=== PATIENT | female | born 1960 | race African-American/Black ===

== ENCOUNTER 2019-03-06 11:30 | Inpatient (IN) ==
[2019-03-06] MEDS ORDERED: niCARdipine 25 MG/10 ML VIAL IV ONE ×2 (12:16→16:20)
[2019-03-06 12:19] LABS: Basophils # 0.1 10*3/uL (0.0-0.2); Basophils % 0.6 % (0.0-0.8); Eosinophils % 0.5 % (0.00-10.9); Hematocrit 44.6 VOL% (35.7-47.0); Immature Granulocytes % 0.3 %; Immature Granulocytes Absolute 0.02 #; Lymphocytes # 1.2 10*3/uL (1.4-4.0); Lymphocytes % 15.1 % (21.3-54.2); Mean Corpuscular HGB Conc 31.4 GM/DL (32-36); Mean Corpuscular Volume 94.1 FL (87-102); Mean Platelet Volume 10.6 FL (9.6-12.0); Monocytes % 3.9 % (1.7-12.7); Neutrophils % 79.6 % (38.7-73.9); Platelet Count 292 T/CUMM (130-400); Red Blood Count 4.74 MC/CUMM (3.8-5.5); Red Cell Distribution Width 14.4 % (9.3-17.3); White Blood Count 7.9 T/CUMM (4-12)
[2019-03-06] MEDS: niCARdipine INJ 25 MG in SODIUM CHLORIDE 0.9% 240 ML IV PRN ×3 (12:26→20:08)
[2019-03-06 12:29] LABS: INR 0.9; PT Patient Result 10.2 SECS (9.6-12.2); Partial Thromboplastin Time 26.8 SECS (20.8-36.0)
[2019-03-06 12:39] LABS: Alanine Aminotransferase 15 U/L (13-56); Albumin 4.2 G/DL (3.4-5.0); Alkaline Phosphatase 69 U/L (45-117); Aspartate Amino Transferase 13 U/L (0-37); Bilirubin,Total < 0.39 MG/DL (0.2-1.0); Blood Urea Nitrogen 17 MG/DL (7-18); Calcium 9.7 MG/DL (8.5-10.1); Estimated Glom Filtration Rate 81 ML/MIN; Glucose 150 MG/DL (74-106); Osmolality,Calculated 285.3 MOS/KG (273-304)
[2019-03-06] MEDS ORDERED: MORPHINE 4 MG/1 ML VIAL IV PRN (12:57)
[2019-03-06] MEDS ORDERED: DOCUSATE SODIUM 100 MG CAPSULE PO PRN (12:57)
[2019-03-06] MEDS ORDERED: ONDANSETRON 4 MG/2 ML VIAL IV PRN (12:57)
[2019-03-06] MEDS: ENOXAPARIN 40 MG/0.4 ML SYRINGE SUBCUT SCH (14:21)
[2019-03-06 18:31] LABS: Apearance,Urine CLEAR (Clear); Bilirubin,Urine Negative (Negative); Blood, Urine Small mg/dL (Negative); Glucose,Urine (UA) 50 mg/dL (Negative); Hyaline Casts,Urine 1 /LPF (0-3); Ketones,Urine 20 mg/dL (Negative); Mucus,Urine Occasional /LPF (Occasional); Nitrite,Urine Negative (Negative); Protein,Urine Negative; RBC,Urine 3 /HPF (0-4); Squamous Epithelial Cell,Urine Occasional /HPF (0-10); Urine Color Straw (Yellow); Urine Specific Gravity 1.013 (1.001-1.035); Urine Urobilinogen < 2.0 EU/DL (0.2-1.0); WBC,Urine 1 /HPF (0-6)
[2019-03-06 18:49] LABS: Barbiturates Screen,Urine Negative (Negative); Benzodiazepines Screen,Urine Negative (Negative); Cannabinoid Screen,Urine Positive (Negative); Opiate Screen,Urine Negative (Negative); Phencyclidine Screen,Urine Negative (Negative)
[2019-03-06] MEDS: ACETAMINOPHEN 325 MG TABLET PO PRN (20:12)
[2019-03-06] MEDS: LABETALOL 100 MG TABLET PO SCH (20:16)
[2019-03-06] MEDS ORDERED: METOPROLOL TARTRATE 50 MG TABLET PO SCH (21:00)
[2019-03-07 04:46] LABS: Basophils # 0.1 10*3/uL (0.0-0.2); Basophils % 0.6 % (0.0-0.8); Eosinophils # 0.1 10*3/uL (0.0-0.87); Hematocrit 41.1 VOL% (35.7-47.0); Immature Granulocytes % 0.2 %; Immature Granulocytes Absolute 0.02 #; Lymphocytes # 1.9 10*3/uL (1.4-4.0); Lymphocytes % 22.9 % (21.3-54.2); Mean Corpuscular HGB Conc 31.6 GM/DL (32-36); Mean Corpuscular Volume 92.8 FL (87-102); Mean Platelet Volume 10.2 FL (9.6-12.0); Monocytes % 6.2 % (1.7-12.7); Neutrophils % 69.1 % (38.7-73.9); Platelet Count 265 T/CUMM (130-400); Red Blood Count 4.43 MC/CUMM (3.8-5.5); Red Cell Distribution Width 14.2 % (9.3-17.3); White Blood Count 8.2 T/CUMM (4-12)
[2019-03-07 05:01] LABS: Osmolality,Calculated 279.4 MOS/KG (273-304); Risk Ratio 2.72; VLDL CHOLESTEROL 19.8 MG/DL
[2019-03-07] MEDS: PANTOPRAZOLE 40 MG TABLET PO SCH (08:16)
[2019-03-07] MEDS: ATORVASTATIN 40 MG TABLET PO SCH (08:17)
[2019-03-07] MEDS: LABETALOL 100 MG TABLET PO SCH ×2 (08:17→20:55)
[2019-03-07] MEDS: ASPIRIN 325 MG TABLET PO SCH (08:17)
[2019-03-07] MEDS ORDERED: LOSARTAN/HCTZ 50-12.5 MG TABLET PO SCH (09:00)
[2019-03-07] MEDS: hydrALAZINE 20 MG/1 ML VIAL IV PRN (11:35)
[2019-03-07] MEDS: ENOXAPARIN 40 MG/0.4 ML SYRINGE SUBCUT SCH (12:24)
[2019-03-07] MEDS: ACETAMINOPHEN 325 MG TABLET PO PRN (21:06)
[2019-03-08 05:42] LABS: Calcium 9.1 MG/DL (8.5-10.1); Osmolality,Calculated 285.1 MOS/KG (273-304)
[2019-03-08] MEDS: LABETALOL 100 MG TABLET PO SCH ×2 (09:48→21:14)
[2019-03-08] MEDS: ASPIRIN 325 MG TABLET PO SCH (09:48)
[2019-03-08] MEDS: ATORVASTATIN 40 MG TABLET PO SCH (09:48)
[2019-03-08] MEDS: hydrALAZINE 20 MG/1 ML VIAL IV PRN (09:48)
[2019-03-08] MEDS: PANTOPRAZOLE 40 MG TABLET PO SCH (09:48)
[2019-03-08] MEDS: LOSARTAN 50 MG TABLET PO SCH (09:49)
[2019-03-08] MEDS: ENOXAPARIN 40 MG/0.4 ML SYRINGE SUBCUT SCH (15:00)
[2019-03-09 05:12] LABS: Calcium 9.2 MG/DL (8.5-10.1); Osmolality,Calculated 290.1 MOS/KG (273-304)
[2019-03-09] MEDS: LOSARTAN 50 MG TABLET PO SCH (09:07)
[2019-03-09] MEDS: ASPIRIN 325 MG TABLET PO SCH (09:07)
[2019-03-09] MEDS: PANTOPRAZOLE 40 MG TABLET PO SCH (09:08)
[2019-03-09] MEDS: ATORVASTATIN 40 MG TABLET PO SCH (09:08)
[2019-03-09] MEDS: LABETALOL 100 MG TABLET PO SCH (09:14)
[2019-03-09] MEDS ORDERED: POTASSIUM CHLORIDE 20 MEQ TABLET PO ONE (09:48)
[2019-03-09] MEDS: SODIUM CHLORIDE 0.9% 1,000 ML IV SCH ×2 (12:29→21:25)
[2019-03-09] MEDS: carvediloL 25 MG TABLET PO SCH ×2 (12:29→21:25)
[2019-03-09] MEDS: ENOXAPARIN 40 MG/0.4 ML SYRINGE SUBCUT SCH (15:01)
[2019-03-09] MEDS: hydrALAZINE 25 MG TABLET PO SCH ×2 (15:01→21:25)
[2019-03-09] MEDS: ALBUTEROL 2.5 MG/3 ML NEB RESP TX PRN (15:34)
[2019-03-10] MEDS ORDERED: CETIRIZINE 10 MG TABLET PO ONE (03:44)
[2019-03-10 05:22] LABS: Basophils % 0.4 % (0.0-0.8); Eosinophils # 0.1 10*3/uL (0.0-0.87); Eosinophils % 1.2 % (0.00-10.9); Hematocrit 36.6 VOL% (35.7-47.0); Hemoglobin 11.6 GM/DL (12.0-16.0); Immature Granulocytes % 0.3 %; Immature Granulocytes Absolute 0.02 #; Lymphocytes # 1.1 10*3/uL (1.4-4.0); Lymphocytes % 14.4 % (21.3-54.2); Mean Corpuscular HGB Conc 31.7 GM/DL (32-36); Mean Corpuscular Volume 93.8 FL (87-102); Mean Platelet Volume 11.2 FL (9.6-12.0); Monocytes % 6.8 % (1.7-12.7); Neutrophils % 76.9 % (38.7-73.9); Platelet Count 253 T/CUMM (130-400); Red Cell Distribution Width 14.7 % (9.3-17.3); White Blood Count 7.5 T/CUMM (4-12)
[2019-03-10 05:57] LABS: Calcium 8.7 MG/DL (8.5-10.1); Osmolality,Calculated 296.6 MOS/KG (273-304)
[2019-03-10] MEDS: hydrALAZINE 25 MG TABLET PO SCH ×3 (08:51→21:35)
[2019-03-10] MEDS: carvediloL 25 MG TABLET PO SCH ×2 (08:51→21:35)
[2019-03-10] MEDS: ATORVASTATIN 40 MG TABLET PO SCH (08:51)
[2019-03-10] MEDS: PANTOPRAZOLE 40 MG TABLET PO SCH (08:51)
[2019-03-10] MEDS: SODIUM CHLORIDE 0.9% 1,000 ML IV SCH ×2 (09:41→17:39)
[2019-03-10] MEDS: ASPIRIN EC 81 MG TABLET PO SCH (09:41)
[2019-03-10] MEDS: ENOXAPARIN 40 MG/0.4 ML SYRINGE SUBCUT SCH (14:38)
[2019-03-10] MEDS: ALBUTEROL 2.5 MG/3 ML NEB RESP TX PRN (17:54)
[2019-03-10] MEDS ORDERED: ZALEPLON 5 MG CAPSULE PO PRN (23:27)
[2019-03-11] MEDS: ALBUTEROL 2.5 MG/3 ML NEB RESP TX PRN ×3 (01:14→23:35)
[2019-03-11] MEDS: SODIUM CHLORIDE 0.9% 1,000 ML IV SCH ×2 (01:21→15:17)
[2019-03-11] MEDS: hydrALAZINE 20 MG/1 ML VIAL IV PRN ×2 (01:45→08:02)
[2019-03-11 06:14] LABS: Basophils % 0.5 % (0.0-0.8); Eosinophils # 0.3 10*3/uL (0.0-0.87); Eosinophils % 3.5 % (0.00-10.9); Hematocrit 36.4 VOL% (35.7-47.0); Hemoglobin 11.2 GM/DL (12.0-16.0); Immature Granulocytes % 0.3 %; Immature Granulocytes Absolute 0.02 #; Lymphocytes # 1.2 10*3/uL (1.4-4.0); Lymphocytes % 15.4 % (21.3-54.2); Mean Corpuscular HGB Conc 30.8 GM/DL (32-36); Mean Corpuscular Volume 96.6 FL (87-102); Mean Platelet Volume 11.3 FL (9.6-12.0); Monocytes % 6.5 % (1.7-12.7); Neutrophils % 73.8 % (38.7-73.9); Platelet Count 252 T/CUMM (130-400); Red Blood Count 3.77 MC/CUMM (3.8-5.5); Red Cell Distribution Width 14.7 % (9.3-17.3); White Blood Count 7.7 T/CUMM (4-12)
[2019-03-11 06:44] LABS: Calcium 8.6 MG/DL (8.5-10.1); Osmolality,Calculated 290.7 MOS/KG (273-304)
[2019-03-11 09:30] LABS: Basophils # 0.1 10*3/uL (0.0-0.2); Basophils % 0.5 % (0.0-0.8); Eosinophils # 0.3 10*3/uL (0.0-0.87); Eosinophils % 3.1 % (0.00-10.9); Hematocrit 38.6 VOL% (35.7-47.0); Hemoglobin 11.9 GM/DL (12.0-16.0); Immature Granulocytes % 0.4 %; Immature Granulocytes Absolute 0.04 #; Lymphocytes # 1.2 10*3/uL (1.4-4.0); Lymphocytes % 12.4 % (21.3-54.2); Mean Corpuscular HGB Conc 30.8 GM/DL (32-36); Mean Corpuscular Volume 95.8 FL (87-102); Mean Platelet Volume 10.3 FL (9.6-12.0); Monocytes % 5.5 % (1.7-12.7); Neutrophils % 78.1 % (38.7-73.9); Platelet Count 248 T/CUMM (130-400); Red Blood Count 4.03 MC/CUMM (3.8-5.5); Red Cell Distribution Width 14.6 % (9.3-17.3); White Blood Count 9.9 T/CUMM (4-12)
[2019-03-11] MEDS ORDERED: SODIUM CHLORIDE 0.9% 1,000 ML IV SCH (09:30)
[2019-03-11 09:44] LABS: INR 0.9; PT Patient Result 10.1 SECS (9.6-12.2); Partial Thromboplastin Time 28.3 SECS (20.8-36.0)
[2019-03-11 09:48] LABS: Albumin 3.2 G/DL (3.4-5.0); Bilirubin,Total 0.4 MG/DL (0.2-1.0); Calcium 8.8 MG/DL (8.5-10.1); Osmolality,Calculated 287.8 MOS/KG (273-304); Total Protein 6.5 G/DL (6.4-8.3)
[2019-03-11 10:04] LABS: Troponin I < 0.015 NG/ML (0.00-0.045)
[2019-03-11] MEDS: hydrALAZINE 25 MG TABLET PO SCH (10:13)
[2019-03-11] MEDS: ASPIRIN EC 81 MG TABLET PO SCH (10:13)
[2019-03-11] MEDS: ATORVASTATIN 40 MG TABLET PO SCH (10:14)
[2019-03-11] MEDS: carvediloL 25 MG TABLET PO SCH ×2 (10:14→21:21)
[2019-03-11] MEDS: PANTOPRAZOLE 40 MG TABLET PO SCH (10:14)
[2019-03-11] MEDS: ENOXAPARIN 40 MG/0.4 ML SYRINGE SUBCUT SCH (15:10)
[2019-03-11] MEDS: methylPREDNISolone SOD SUC 40 MG/1 ML VIAL IV SCH ×2 (15:11→21:21)
[2019-03-11] MEDS: AZITHROMYCIN INJ 250 MG in SODIUM CHLORIDE 0.9% 250 ML IV SCH (16:17)
[2019-03-12] MEDS: hydrALAZINE 20 MG/1 ML VIAL IV PRN ×2 (00:42→16:25)
[2019-03-12] MEDS: SODIUM CHLORIDE 0.9% 1,000 ML IV SCH ×2 (01:17→09:34)
[2019-03-12] MEDS: ALBUTEROL 2.5 MG/3 ML NEB RESP TX PRN ×3 (03:50→20:34)
[2019-03-12] MEDS ORDERED: hydrALAZINE 20 MG/1 ML VIAL IV ONE (05:17)
[2019-03-12 05:25] LABS: Basophils % 0.2 % (0.0-0.8); Hematocrit 38.5 VOL% (35.7-47.0); Hemoglobin 11.8 GM/DL (12.0-16.0); Immature Granulocytes % 0.3 %; Immature Granulocytes Absolute 0.02 #; Lymphocytes # 0.5 10*3/uL (1.4-4.0); Lymphocytes % 6.9 % (21.3-54.2); Mean Corpuscular HGB Conc 30.6 GM/DL (32-36); Monocytes % 0.3 % (1.7-12.7); Neutrophils % 92.3 % (38.7-73.9); Platelet Count 227 T/CUMM (130-400); Red Blood Count 4.01 MC/CUMM (3.8-5.5); Red Cell Distribution Width 14.5 % (9.3-17.3); White Blood Count 6.5 T/CUMM (4-12)
[2019-03-12 05:50] LABS: Calcium 8.6 MG/DL (8.5-10.1); Osmolality,Calculated 295.6 MOS/KG (273-304)
[2019-03-12 06:02] LABS: Eosinophils 1 % (0-10); Lymphocytes 7 % (20-55); Segmented Neutrophils 91 % (50-85); Total Cells Counted 100
[2019-03-12 06:03] LABS: Anisocytosis 1+; Platelet Estimate Adequate
[2019-03-12] MEDS: methylPREDNISolone SOD SUC 40 MG/1 ML VIAL IV SCH ×3 (06:08→22:19)
[2019-03-12] MEDS: carvediloL 25 MG TABLET PO SCH ×2 (09:35→20:25)
[2019-03-12] MEDS: PANTOPRAZOLE 40 MG TABLET PO SCH (09:36)
[2019-03-12] MEDS: ATORVASTATIN 40 MG TABLET PO SCH (09:36)
[2019-03-12] MEDS: cloNIDine 0.1 MG TABLET PO SCH ×2 (09:36→20:24)
[2019-03-12] MEDS: ASPIRIN EC 81 MG TABLET PO SCH (09:41)
[2019-03-12] MEDS: ENOXAPARIN 40 MG/0.4 ML SYRINGE SUBCUT SCH (13:21)
[2019-03-12] MEDS: AZITHROMYCIN INJ 250 MG in SODIUM CHLORIDE 0.9% 250 ML IV SCH (15:13)
[2019-03-12] MEDS: APIXABAN 2.5 MG TABLET PO SCH ×2 (15:59→20:25)
[2019-03-13] MEDS: ALBUTEROL 2.5 MG/3 ML NEB RESP TX PRN ×3 (01:21→12:25)
[2019-03-13] MEDS: methylPREDNISolone SOD SUC 40 MG/1 ML VIAL IV SCH ×2 (06:27→16:03)
[2019-03-13] MEDS: SODIUM CHLORIDE 0.9% 1,000 ML IV SCH ×3 (06:42→16:03)
[2019-03-13] MEDS: carvediloL 25 MG TABLET PO SCH (08:16)
[2019-03-13] MEDS: APIXABAN 2.5 MG TABLET PO SCH (08:16)
[2019-03-13] MEDS: ATORVASTATIN 40 MG TABLET PO SCH (08:16)
[2019-03-13] MEDS: PANTOPRAZOLE 40 MG TABLET PO SCH (08:16)
[2019-03-13] MEDS: ASPIRIN EC 81 MG TABLET PO SCH (08:16)
[2019-03-13] MEDS: cloNIDine 0.1 MG TABLET PO SCH (08:16)
[2019-03-13] MEDS ORDERED: TUBERCULIN SKIN TEST 0.1 ML SYRINGE INTRADERM ONE (10:47)
[2019-03-13] MEDS: hydrALAZINE 20 MG/1 ML VIAL IV PRN (12:30)
[2019-03-13 15:38] VITALS: BP 172/86
[2019-03-13] MEDS: AZITHROMYCIN INJ 250 MG in SODIUM CHLORIDE 0.9% 250 ML IV SCH (16:04)
== END 2019-03-13 16:16 | DRG 304 ==
LOC: N.ED 11:30 → SUATTDRO 12:57 → N.EDINP 12:57 → N.CC 16:52 → N.4E 03-08 12:16
PROVIDERS: ADMIT Internal Medicine; ATTEND Internal Medicine

== ENCOUNTER 2021-06-26 05:16 | Inpatient (IN) ==
[2021-06-26] MEDS ORDERED: LORazepam 2 MG/1 ML VIAL IV STA (05:24)
[2021-06-26] MEDS ORDERED: hydrALAZINE 20 MG/1 ML VIAL IV STA (05:24)
[2021-06-26] MEDS ORDERED: ONDANSETRON 4 MG/2 ML VIAL IV STA (05:24)
[2021-06-26] MEDS ORDERED: ASPIRIN 325 MG TABLET PO STA (05:24)
[2021-06-26] MEDS ORDERED: methylPREDNISolone SOD SUC 125 MG/2 ML VIAL IV STA (05:24)
[2021-06-26] MEDS ORDERED: NITROGLYCERIN 2% OINT 1 INCH/GM PACK TOP STA (05:26)
[2021-06-26] MEDS ORDERED: ALBUTEROL NEB SOLN 5 MG/ML 20 ML/BOTTLE CONT NEB SCH (05:30)
[2021-06-26] MEDS ORDERED: ALBUTEROL 2.5 MG/3 ML NEB RESP TX ONE (05:34)
[2021-06-26 05:43] LABS: Basophils % 0.5 % (0.0-0.8); Eosinophils # 0.1 10*3/uL (0.0-0.87); Eosinophils % 1.5 % (0.00-10.9); Hematocrit 41.1 VOL% (35.7-47.0); Hemoglobin 13.1 GM/DL (12.0-16.0); Immature Granulocytes % 0.4 %; Immature Granulocytes Absolute 0.03 #; Lymphocytes # 1.1 10*3/uL (1.4-4.0); Lymphocytes % 13.1 % (21.3-54.2); Mean Corpuscular HGB Conc 31.9 GM/DL (32-36); Mean Corpuscular Volume 94.9 FL (87-102); Mean Platelet Volume 9.6 FL (9.6-12.0); Monocytes % 3.4 % (1.7-12.7); Neutrophils % 81.1 % (38.7-73.9); Platelet Count 241 T/CUMM (130-400); Red Blood Count 4.33 MC/CUMM (3.8-5.5); Red Cell Distribution Width 14.4 % (9.3-17.3); White Blood Count 8.5 T/CUMM (4-12)
[2021-06-26 05:50] LABS: Arterial Base Excess iSTAT -1 MMOL/L (-2.5-2.5); Arterial O2 Saturation iSTAT 97 % (95-100); Arterial PCO2 iSTAT 60 MM HG (35-48); Arterial PO2 iSTAT 107 MM HG (80-95); Arterial Total CO2 iSTAT 29 MMO/L (23-27)
[2021-06-26 05:58] LABS: PT Patient Result 11.6 SECS (10.5-12.0)
[2021-06-26 06:01] LABS: Albumin 3.7 G/DL (3.4-5.0); Bilirubin,Total 0.6 MG/DL (0.20-1.00); Calcium 9.3 MG/DL (8.5-10.1); Potassium 4.1 MMOL/L (3.5-5.1); Total Protein 7.4 G/DL (6.4-8.2)
[2021-06-26 07:00] LABS: Amorphous Crystals,Urine Occasional /HPF (Few); Bacteria,Urine Occasional /HPF (Few); Mucus,Urine Occasional /LPF (Occasional); RBC,Urine 8 /HPF (0-4); Squamous Epithelial Cell,Urine Occasional /HPF (0-10)
[2021-06-26 07:02] LABS: Bilirubin,Urine Negative (Negative); Blood, Urine Negative (Negative); Glucose,Urine (UA) Negative (Negative); Ketones,Urine 15 mg/dL (Negative); Nitrite,Urine Negative (Negative); Protein,Urine Negative (Negative); Urine Appearance Cloudy (Clear); Urine Color Yellow (Yellow); Urine Specific Gravity 1.025 (1.001-1.035); Urine Urobilinogen 0.2 eU/dL (<2.0)
[2021-06-26 07:19] LABS: Barbiturates Screen,Urine Negative (Negative); Benzodiazepines Screen,Urine Negative (Negative); Cannabinoid Screen,Urine Positive (Negative); Opiate Screen,Urine Negative (Negative); Phencyclidine Screen,Urine Negative (Negative)
[2021-06-26 08:35] LABS: Arterial Base Excess iSTAT 0 MMOL/L (-2.5-2.5); Arterial Bicarbonate iSTAT 27.7 MMOL/L (20-26); Arterial O2 Saturation iSTAT 90 % (95-100); Arterial PCO2 iSTAT 59 MM HG (35-48); Arterial PO2 iSTAT 67 MM HG (80-95); Arterial Total CO2 iSTAT 29 MMO/L (23-27); Arterial pH iSTAT 7.276 (7.35-7.45)
[2021-06-26] MEDS ORDERED: guaiFENesin/DM ER 600-30 MG TABLET PO PRN (09:07)
[2021-06-26] MEDS ORDERED: hydrALAZINE 20 MG/1 ML VIAL IV PRN (09:07)
[2021-06-26] MEDS ORDERED: ONDANSETRON 4 MG/2 ML VIAL IV PRN (09:07)
[2021-06-26] MEDS ORDERED: ACETAMINOPHEN 325 MG TABLET PO PRN (09:07)
[2021-06-26] MEDS ORDERED: NICOTINE 21 MG/24 HR PATCH TRANSDERM PRN (09:07)
[2021-06-26] MEDS ORDERED: DOCUSATE SODIUM 100 MG CAPSULE PO PRN (09:20)
[2021-06-26] MEDS ORDERED: ENOXAPARIN 40 MG/0.4 ML SYRINGE SUBCUT SCH (09:30)
[2021-06-26] MEDS: cefTRIAXone 1,000 MG in SODIUM CHLORIDE 0.9% 100 ML IV SCH (10:15)
[2021-06-26] MEDS: AZITHROMYCIN INJ 500 MG in SODIUM CHLORIDE 0.9% 250 ML IV SCH (10:20)
[2021-06-26] MEDS: methylPREDNISolone SOD SUC 40 MG/1 ML VIAL IV SCH ×2 (10:20→17:33)
[2021-06-26] MEDS: ALBUTEROL/IPRATROPIUM 3 ML NEB RESP TX SCH ×3 (12:06→23:55)
[2021-06-26 12:14] LABS: Arterial Base Excess iSTAT -1 MMOL/L (-2.5-2.5); Arterial Bicarbonate iSTAT 27.1 MMOL/L (20-26); Arterial O2 Saturation iSTAT 100 % (95-100); Arterial PCO2 iSTAT 59 MM HG (35-48); Arterial PO2 iSTAT 203 MM HG (80-95); Arterial Total CO2 iSTAT 29 MMO/L (23-27); Arterial pH iSTAT 7.272 (7.35-7.45)
[2021-06-26] MEDS: APIXABAN 2.5 MG TABLET PO SCH (20:40)
[2021-06-27] MEDS: methylPREDNISolone SOD SUC 40 MG/1 ML VIAL IV SCH ×3 (02:11→16:30)
[2021-06-27 03:33] LABS: ABG Base Excess 0.1 MMOL/L (-2.5-2.5); ABG HCO3 24.6 MMOL/L (20-26); ABG Oxygen Saturation 99.3 % (95-100); ABG PH 7.348 (7.35-7.45); ABG TCO2 23.5 MMOL/L (23-27)
[2021-06-27 04:44] LABS: Basophils % 0.1 % (0.0-0.8); Hematocrit 39.2 VOL% (35.7-47.0); Hemoglobin 12.4 GM/DL (12.0-16.0); Immature Granulocytes % 0.3 %; Immature Granulocytes Absolute 0.03 #; Lymphocytes # 0.9 10*3/uL (1.4-4.0); Mean Corpuscular HGB Conc 31.6 GM/DL (32-36); Mean Corpuscular Volume 97.5 FL (87-102); Mean Platelet Volume 11.3 FL (9.6-12.0); Monocytes % 2.2 % (1.7-12.7); Neutrophils % 87.4 % (38.7-73.9); Platelet Count 171 T/CUMM (130-400); Red Blood Count 4.02 MC/CUMM (3.8-5.5); Red Cell Distribution Width 14.7 % (9.3-17.3); White Blood Count 8.7 T/CUMM (4-12)
[2021-06-27 05:07] LABS: Calcium 9.1 MG/DL (8.5-10.1); Osmolality,Calculated 277.1 MOS/KG (273-304); Potassium 4.4 MMOL/L (3.5-5.1); Thyroid Stimulating Hormone 0.224 uIU/ml (0.358-3.74)
[2021-06-27] MEDS: ALBUTEROL/IPRATROPIUM 3 ML NEB RESP TX SCH ×3 (07:25→19:00)
[2021-06-27 08:09] LABS: Free T4 (Free Thyroxine) 1.31 NG/DL (0.76-1.46)
[2021-06-27] MEDS: ASPIRIN EC 81 MG TABLET PO SCH (08:27)
[2021-06-27] MEDS: PANTOPRAZOLE 40 MG TABLET PO SCH (08:28)
[2021-06-27] MEDS: ATORVASTATIN 40 MG TABLET PO SCH (08:28)
[2021-06-27] MEDS: APIXABAN 2.5 MG TABLET PO SCH ×2 (08:28→20:05)
[2021-06-27] MEDS: cefTRIAXone 1,000 MG in SODIUM CHLORIDE 0.9% 100 ML IV SCH (08:31)
[2021-06-27] MEDS: AZITHROMYCIN INJ 500 MG in SODIUM CHLORIDE 0.9% 250 ML IV SCH (08:31)
[2021-06-27] MEDS: busPIRone 5 MG TABLET PO SCH (20:04)
[2021-06-28] MEDS: ALBUTEROL/IPRATROPIUM 3 ML NEB RESP TX SCH ×4 (00:20→18:58)
[2021-06-28] MEDS: methylPREDNISolone SOD SUC 40 MG/1 ML VIAL IV SCH ×3 (00:41→21:25)
[2021-06-28 04:15] LABS: ABG Base Excess 3.4 MMOL/L (-2.5-2.5); ABG HCO3 27.4 MMOL/L (20-26); ABG Oxygen Saturation 97.3 % (95-100); ABG PCO2 47.3 MM HG (35-48); ABG PH 7.395 (7.35-7.45); ABG TCO2 25.8 MMOL/L (23-27)
[2021-06-28 06:21] LABS: Basophils % 0.1 % (0.0-0.8); Hematocrit 35.7 VOL% (35.7-47.0); Hemoglobin 11.3 GM/DL (12.0-16.0); Immature Granulocytes % 0.3 %; Immature Granulocytes Absolute 0.04 #; Lymphocytes # 0.4 10*3/uL (1.4-4.0); Lymphocytes % 3.2 % (21.3-54.2); Mean Corpuscular HGB Conc 31.7 GM/DL (32-36); Mean Corpuscular Volume 95.5 FL (87-102); Mean Platelet Volume 10.9 FL (9.6-12.0); Monocytes % 2.4 % (1.7-12.7); Platelet Count 209 T/CUMM (130-400); Red Blood Count 3.74 MC/CUMM (3.8-5.5); Red Cell Distribution Width 14.7 % (9.3-17.3); White Blood Count 12.4 T/CUMM (4-12)
[2021-06-28 06:42] LABS: Anisocytosis 1+; Band Neutrophils 5 % (0-10); Burr Cells Few; Lymphocytes 5 % (20-55); Macrocytosis 1+; Ovalocytes Few; Platelet Estimate Normal; Segmented Neutrophils 85 % (50-85); Total Cells Counted 100
[2021-06-28 06:44] LABS: Calcium 9.1 MG/DL (8.5-10.1); Osmolality,Calculated 285.5 MOS/KG (273-304); Potassium 4.4 MMOL/L (3.5-5.1)
[2021-06-28] MEDS: APIXABAN 2.5 MG TABLET PO SCH ×2 (08:12→21:26)
[2021-06-28] MEDS: PANTOPRAZOLE 40 MG TABLET PO SCH (08:12)
[2021-06-28] MEDS: ATORVASTATIN 40 MG TABLET PO SCH (08:12)
[2021-06-28] MEDS: ASPIRIN EC 81 MG TABLET PO SCH (08:12)
[2021-06-28] MEDS: busPIRone 5 MG TABLET PO SCH (08:12)
[2021-06-28] MEDS: AZITHROMYCIN INJ 500 MG in SODIUM CHLORIDE 0.9% 250 ML IV SCH (08:30)
[2021-06-28] MEDS: cefTRIAXone 1,000 MG in SODIUM CHLORIDE 0.9% 100 ML IV SCH (08:47)
[2021-06-28] MEDS: NICOTINE 21 MG/24 HR PATCH TRANSDERM SCH (14:56)
[2021-06-28] MEDS: FLUTICASONE 50 MCG NASAL SPRAY 16 GM BOTTLE BOTH NARES SCH ×2 (14:56→21:26)
[2021-06-28] MEDS: busPIRone 10 MG TABLET PO SCH (21:26)
[2021-06-29] MEDS: ALBUTEROL/IPRATROPIUM 3 ML NEB RESP TX SCH ×4 (00:08→15:13)
[2021-06-29 05:48] LABS: Basophils % 0.1 % (0.0-0.8); Hematocrit 33.2 VOL% (35.7-47.0); Hemoglobin 10.6 GM/DL (12.0-16.0); Immature Granulocytes % 0.4 %; Immature Granulocytes Absolute 0.05 #; Lymphocytes # 0.3 10*3/uL (1.4-4.0); Lymphocytes % 2.9 % (21.3-54.2); Mean Corpuscular HGB Conc 31.9 GM/DL (32-36); Mean Corpuscular Volume 94.9 FL (87-102); Mean Platelet Volume 10.8 FL (9.6-12.0); Monocytes % 3.8 % (1.7-12.7); Neutrophils % 92.8 % (38.7-73.9); Platelet Count 189 T/CUMM (130-400); Red Cell Distribution Width 14.7 % (9.3-17.3); White Blood Count 11.2 T/CUMM (4-12)
[2021-06-29 06:03] LABS: Calcium 8.7 MG/DL (8.5-10.1); Osmolality,Calculated 288.1 MOS/KG (273-304)
[2021-06-29 06:46] LABS: Lymphocytes 5 % (20-55); Ovalocytes Few; Platelet Estimate Normal; Polychromasia Slight; Segmented Neutrophils 92 % (50-85); Total Cells Counted 100
[2021-06-29] MEDS: methylPREDNISolone SOD SUC 40 MG/1 ML VIAL IV SCH (09:20)
[2021-06-29] MEDS: busPIRone 10 MG TABLET PO SCH (09:21)
[2021-06-29] MEDS: ATORVASTATIN 40 MG TABLET PO SCH (09:21)
[2021-06-29] MEDS: ASPIRIN EC 81 MG TABLET PO SCH (09:21)
[2021-06-29] MEDS: FLUTICASONE 50 MCG NASAL SPRAY 16 GM BOTTLE BOTH NARES SCH (09:21)
[2021-06-29] MEDS: APIXABAN 2.5 MG TABLET PO SCH (09:21)
[2021-06-29] MEDS: PANTOPRAZOLE 40 MG TABLET PO SCH (09:22)
[2021-06-29] MEDS: NICOTINE 21 MG/24 HR PATCH TRANSDERM SCH (09:22)
[2021-06-29] MEDS: cefTRIAXone 1,000 MG in SODIUM CHLORIDE 0.9% 100 ML IV SCH (09:22)
[2021-06-29] MEDS: AZITHROMYCIN INJ 500 MG in SODIUM CHLORIDE 0.9% 250 ML IV SCH (10:19)
[2021-06-29 13:11] VITALS: BP 151/78
== END 2021-06-29 16:20 | disposition home or self-care (01) | DRG 140 ==
LOC: EDBD → EDUNIT# → N.ED 05:16 → N.EDINP 09:07 → SUATTDRO 09:07 → N.CC 09:57 → N.5E 06-28 16:26
PROVIDERS: ADMIT Internal Medicine; ATTEND Hospitalist

== ENCOUNTER 2021-11-20 00:59 | Observation (INO) ==
[2021-11-20] MEDS ORDERED: FUROSEMIDE 100 MG/10 ML VIAL IV STA (01:14)
[2021-11-20] MEDS ORDERED: methylPREDNISolone SOD SUC 125 MG/2 ML VIAL IV STA (01:14)
[2021-11-20] MEDS ORDERED: hydrALAZINE 20 MG/1 ML VIAL IV STA (01:14)
[2021-11-20] MEDS ORDERED: ALBUTEROL/IPRATROPIUM 3 ML NEB RESP TX STA (01:14)
[2021-11-20] MEDS ORDERED: MORPHINE 2 MG/1 ML SYRINGE IV STA (01:14)
[2021-11-20] MEDS ORDERED: ONDANSETRON 4 MG/2 ML VIAL IV STA (01:14)
[2021-11-20] MEDS ORDERED: NITROGLYCERIN 2% OINT 1 INCH/GM PACK TOP STA (01:14)
[2021-11-20 01:16] LABS: Basophils % 0.3 % (0.0-0.8); Eosinophils # 0.3 10*3/uL (0.0-0.87); Eosinophils % 2.1 % (0.00-10.9); Hematocrit 39.5 VOL% (35.7-47.0); Hemoglobin 12.3 GM/DL (12.0-16.0); Immature Granulocytes % 0.4 %; Immature Granulocytes Absolute 0.05 #; Lymphocytes # 2.3 10*3/uL (1.4-4.0); Mean Corpuscular HGB Conc 31.1 GM/DL (32-36); Mean Corpuscular Volume 96.8 FL (87-102); Mean Platelet Volume 9.8 FL (9.6-12.0); Monocytes # 0.6 10*3/uL (0.11-0.8); Neutrophils % 74.2 % (38.7-73.9); Platelet Count 237 T/CUMM (130-400); Red Blood Count 4.08 MC/CUMM (3.8-5.5); Red Cell Distribution Width 13.7 % (9.3-17.3); White Blood Count 12.8 T/CUMM (4-12)
[2021-11-20 01:30] LABS: PT Patient Result 10.9 SECS (10.1-12.1); Partial Thromboplastin Time 26.8 SECS (23.7-32.9)
[2021-11-20] MEDS ORDERED: ALBUTEROL NEB SOLN 5 MG/ML 20 ML/BOTTLE CONT NEB SCH (01:30)
[2021-11-20 01:38] LABS: Albumin 3.6 G/DL (3.4-5.0); Bilirubin,Total 0.4 MG/DL (0.20-1.00); Calcium 8.8 MG/DL (8.5-10.1); Potassium 3.7 MMOL/L (3.5-5.1); Total Protein 6.3 G/DL (6.4-8.2)
[2021-11-20 01:38] LABS: Arterial Base Excess iSTAT 2 MMOL/L (-2.5-2.5); Arterial Bicarbonate iSTAT 30.7 MMOL/L (20-26); Arterial O2 Saturation iSTAT 99 % (95-100); Arterial PCO2 iSTAT 71 MM HG (35-48); Arterial PO2 iSTAT 190 MM HG (80-95); Arterial Total CO2 iSTAT 33 MMO/L (23-27); Arterial pH iSTAT 7.246 (7.35-7.45)
[2021-11-20 02:26] LABS: Amorphous Crystals,Urine Occasional /HPF (Few); Granular Casts,Urine 1 /LPF (0-1); Hyaline Casts,Urine 4 /LPF (0-3); Mucus,Urine Occasional /LPF (Occasional); RBC,Urine 1 /HPF (0-4); Squamous Epithelial Cell,Urine Occasional /HPF (0-10); Urine Appearance Clear (Clear); Urine Color Yellow (Yellow)
[2021-11-20 02:27] LABS: Bilirubin,Urine Negative (Negative); Blood, Urine Negative (Negative); Glucose,Urine (UA) Negative (Negative); Ketones,Urine Negative (Negative); Nitrite,Urine Negative (Negative); Protein,Urine 100 mg/dL (Negative); Urine Specific Gravity 1.025 (1.001-1.035); Urine Urobilinogen 0.2 eU/dL (<2.0)
[2021-11-20 02:44] LABS: Arterial Base Excess iSTAT 3 MMOL/L (-2.5-2.5); Arterial Bicarbonate iSTAT 30.5 MMOL/L (20-26); Arterial O2 Saturation iSTAT 99 % (95-100); Arterial PCO2 iSTAT 57 MM HG (35-48); Arterial PO2 iSTAT 162 MM HG (80-95); Arterial Total CO2 iSTAT 32 MMO/L (23-27); Arterial pH iSTAT 7.337 (7.35-7.45)
[2021-11-20] MEDS ORDERED: ACETAMINOPHEN 325 MG TABLET PO PRN (03:17)
[2021-11-20] MEDS ORDERED: GLUCAGON 1 MG VIAL IM PRN (03:17)
[2021-11-20] MEDS ORDERED: hydrALAZINE 20 MG/1 ML VIAL IV PRN (03:17)
[2021-11-20] MEDS ORDERED: MORPHINE 2 MG/1 ML SYRINGE IV PRN (03:17)
[2021-11-20] MEDS ORDERED: cefTRIAXone 1,000 MG in SODIUM CHLORIDE 0.9% 100 ML IV SCH (03:30)
[2021-11-20] MEDS ORDERED: DEXTROSE 10% 250 ML BAG IV PRN (03:33)
[2021-11-20] MEDS ORDERED: POTASSIUM CHLORIDE 20 MEQ TABLET PO PRN (03:34)
[2021-11-20] MEDS ORDERED: guaiFENesin/DM ER 600-30 MG TABLET PO PRN (03:41)
[2021-11-20] MEDS ORDERED: AZITHROMYCIN INJ 500 MG in SODIUM CHLORIDE 0.9% 250 ML IV SCH (04:00)
[2021-11-20] MEDS ORDERED: ALBUTEROL 0.63 MG/3 ML NEB RESP TX ONE (06:45)
[2021-11-20 07:39] LABS: Arterial Base Excess iSTAT 5 MMOL/L (-2.5-2.5); Arterial Bicarbonate iSTAT 32.1 MMOL/L (20-26); Arterial O2 Saturation iSTAT 98 % (95-100); Arterial PCO2 iSTAT 56 MM HG (35-48); Arterial PO2 iSTAT 107 MM HG (80-95); Arterial Total CO2 iSTAT 34 MMO/L (23-27)
[2021-11-20] MEDS: ALBUTEROL/IPRATROPIUM 3 ML NEB RESP TX SCH ×2 (07:45→13:05)
[2021-11-20] MEDS ORDERED: busPIRone 5 MG TABLET PO SCH (09:00)
[2021-11-20] MEDS ORDERED: ATORVASTATIN 40 MG TABLET PO SCH (09:00)
[2021-11-20] MEDS ORDERED: PANTOPRAZOLE 40 MG TABLET PO SCH (09:00)
[2021-11-20] MEDS ORDERED: FLUTICASONE 50 MCG NASAL SPRAY 16 GM BOTTLE BOTH NARES SCH (09:00)
[2021-11-20] MEDS ORDERED: VALSARTAN 160 MG TABLET PO SCH (09:00)
[2021-11-20] MEDS ORDERED: APIXABAN 2.5 MG TABLET PO SCH (09:00)
[2021-11-20] MEDS: methylPREDNISolone SOD SUC 125 MG/2 ML VIAL IV SCH ×2 (09:40→17:40)
[2021-11-20 15:58] VITALS: BP 125/80
== END 2021-11-20 18:53 | disposition home or self-care (01) ==
LOC: N.EDINP 00:59 → N.ED 00:59 → SUATTDRO 03:17 → N.EDINP 04:31 → N.5E 05:15
PROVIDERS: ADMIT Internal Medicine; ATTEND Internal Medicine